=== PATIENT | female | born 1970 | race Caucasian/White ===

== ENCOUNTER 2016-08-24 08:13 | Emergency (ER) | payer OTHER ==
[~2016-08-24] VITALS: Ht 170.2 cm; Wt 59.0 kg
[~2016-08-24 08:13] MED LIST: CORTISONE SHOT; MS CONTIN60 MG PO; NEURONTIN100 MG PO; OXYCODONE/APAP1 TA4 PO
[2016-08-24 08:30] VITALS: BP 131/79
--- NOTE | 2016-08-24 08:37 | NUR ---
Patient ambulated to bed 06.
--- NOTE | 2016-08-24 08:48 | NUR ---
PATIENT PRESENTS TO ED DUE TO HEADACHE. PT STATES SHE RECEIVED CERVICAL FACET INJECTION YESTERDAY AND HAS HAD THE HEADACHE EVER SINCE,WITH VOMITTING, NO DIARRHEA SKIN IS PINK/WARM/DRY; AAOX4 WITH EVEN AND STEADY GAIT; LUNGS CLEAR BL; HR EVEN AND REGULAR; PT DENIES ANY FEVER, CP, SOB, OR COUGH AT THIS TIME; PATIENT STATES PAIN OF 1010 AT THIS TIME; VSS; PATIENT POSITIONED FOR COMFORT; HOB ELEVATED; BEDRAILS UP X2; BED DOWN. ER MADE AWARE OF PT STATUS. Addendum: 08/24/16 at 1047 by [email or web address] NOTED NEEDLE FAN ON NECK, NO BLEEDING NOTED.
--- NOTE | 2016-08-24 08:49 | NUR ---
CELY) EVALUATING PATIENT AT BEDSIDE.
--- NOTE | 2016-08-24 08:57 | NUR ---
TALKED TO PT IF SHE CAN GIVE ME URINE , PER PT SHE JUST WENT FEW MINUTES AGO.
[2016-08-24] MEDS ORDERED: KETOROLAC 30 MG/ML VIAL IM ONE (09:00)
[2016-08-24] MEDS ORDERED: METOCLOPRAMIDE 10 MG TAB PO ONE (09:00)
[2016-08-24] MEDS ORDERED: DEXAMETHASONE 4 MG/ML VIAL PO ONE (09:00)
--- NOTE | 2016-08-24 09:00 | NUR ---
DR. SELF EVALUATING PATIENT AT BEDSIDE.
[2016-08-24] MEDS ORDERED: ONDANSETRON 4 MG ODT PO ONE (09:50)
[2016-08-24] MEDS ORDERED: MORPHINE SULFATE 4 MG/ML SYR IM ONE (09:50)
--- NOTE | 2016-08-24 10:02 | NUR ---
CRANBERRY JUICE GIVEN TO THE PT PER PT REQUEST, PT AAO, AT BEDSIDE.
--- NOTE | 2016-08-24 10:24 | NUR ---
PT VERBALIZED I FEEL MUCH BETTER, PT AAO, NO VOMITTING NOTED. DR. SELF AT BEDSIDE
[2016-08-24 10:48] VITALS: BP 107/68
== END 2016-08-24 10:47 | disposition home or self-care (01) ==
LOC: MED 08:21
DX: R51 Headache (principal); G89.4 Chronic pain syndrome; M48.02 Spinal stenosis, cervical region
CPT/HCPCS: 96372; 99284; J1100; J1885; J2270; J8597; Q0163; S0119

== ENCOUNTER 2017-11-16 05:10 | Emergency (ER) | payer OTHER ==
[~2017-11-16] VITALS: Ht 172.7 cm; Wt 61.2 kg
[~2017-11-16 05:10] MED LIST changes: +ACET-7169 PO; -CORTISONE SHOT; +MORP60TE50 PO; -MS CONTIN60 MG PO; -NEURONTIN100 MG PO; -OXYCODONE/APAP1 TA4 PO
[2017-11-16 05:15] VITALS: BP 128/89
--- NOTE | 2017-11-16 05:16 | NUR ---
PATIENT PRESENTS TO ED WITH C/O SHOEMAKER X 4 DAYS; HX CHRONIC MIGRAINE WITH N/V ; SKIN IS PINK/WARM/DRY; AAOX4 WITH EVEN AND STEADY GAIT; LUNGS CLEAR BL; HR EVEN AND REGULAR; PT DENIES ANY FEVER, CP, SOB, OR COUGH AT THIS TIME; PATIENT STATES PAIN OF 9/10 AT THIS TIME; VSS; PATIENT POSITIONED FOR COMFORT; HOB ELEVATED; BEDRAILS UP X2; BED DOWN. ER MD MADE AWARE OF PT STATUS.
[2017-11-16] MEDS ORDERED: KETOROLAC 30 MG/ML VIAL IVP ONE (05:30)
[2017-11-16] MEDS ORDERED: diphenhydrAMINE 50 MG/ML VIAL IVP ONE (05:30)
[2017-11-16] MEDS ORDERED: METOCLOPRAMIDE 10 MG/2 ML INJ VIAL IVP ONE (05:30)
[2017-11-16] MEDS ORDERED: NACL 0.9% 1,000 ML IV ONE (05:30)
[2017-11-16] MEDS ORDERED: fentaNYL 0.05 MG/ML VIAL IVP ONE (06:20)
[2017-11-16 06:30] VITALS: BP 122/75
--- NOTE | 2017-11-16 06:30 | NUR ---
Patient discharged with v/s stable. Written and verbal after care instructions given and explained. Patient alert, oriented and verbalized understanding of instructions. Wheel Chair Assisted with to car. All questions addressed prior to discharge. ID band removed. Patient advised to follow up with PMD. Rx of REGLAN 5MG, FIORICET 50MG given. Patient educated on indication of medication including possible reaction and side effects. Opportunity to ask questions provided and answered.
== END 2017-11-16 06:30 | disposition home or self-care (01) ==
LOC: MED 05:10
DX: R51 Headache (principal); Z98.890 Other specified postprocedural states
CPT/HCPCS: 96361; 96374; 96375; 99284; J1200; J1885; J2765; J3010; J7030

== ENCOUNTER 2017-11-25 15:14 | Emergency (ER) | payer OTHER ==
[~2017-11-25] VITALS: Ht 170.2 cm; Wt 62.3 kg
[2017-11-25 15:17] VITALS: BP 134/98
--- NOTE | 2017-11-25 15:21 | NUR ---
PT AMBULATES WITH STEADY GAIT OT ER BED 9
--- NOTE | 2017-11-25 15:26 | NUR ---
Dr. Bill evaluating patient at bedside.
[2017-11-25] MEDS ORDERED: PROCHLORPERAZINE 10 MG/2 ML VIAL IVP ONE (15:30)
[2017-11-25] MEDS ORDERED: KETOROLAC 30 MG/ML VIAL IVP ONE (15:30)
[2017-11-25] MEDS ORDERED: diphenhydrAMINE 50 MG/ML VIAL IVP ONE (15:30)
[2017-11-25] MEDS ORDERED: NACL 0.9% 1,000 ML IV ONE (15:30)
[2017-11-25] MEDS ORDERED: MORPHINE SULFATE 4 MG/ML SYR IVP ONE (16:35)
--- NOTE | 2017-11-25 16:50 | NUR ---
PT CONTINUES TO C/O 05/01 SHOEMAKER PAIN. STATES SHE ONLY GETS RELIEF WITH MORPHINE. STATES SHE HAS AN APPT WITH HER OBGYN TO START HORMONE THERAPY, WANTS TO HAVE MORPHINE AND THEN GO HOME. DR DUVAL NOTIFIED
--- NOTE | 2017-11-25 17:01 | NUR ---
PT AMBULATING TO AND FROM BR WITH STEADY NORMAL GAIT
--- NOTE | 2017-11-25 17:07 | NUR ---
LATE ENTRY IVF NS BOLUS COMPLETE
--- NOTE | 2017-11-25 17:32 | NUR ---
PT STATES HER HEADACHE IS GONE NOW. DR DUVAL NOTIFIED, AT BEDSIDE SPEAKING WITH PT
[2017-11-25 17:44] VITALS: BP 125/85
--- NOTE | 2017-11-25 17:45 | NUR ---
Patient discharged with v/s stable. Written and verbal after care instructions given and explained. Patient verbalized understanding. Ambulatory with steady gait. All questions addressed prior to discharge. Advised to follow up with PMD.
== END 2017-11-25 17:45 | disposition home or self-care (01) ==
LOC: MED 15:14
DX: G43.909 Migraine, unspecified, not intractable, without status migrainosus (principal); R63.0 Anorexia; F17.210 Nicotine dependence, cigarettes, uncomplicated; Z79.899 Other long term (current) drug therapy
CPT/HCPCS: 96361; 96374; 96375; 99284; J0780; J1200; J1885; J2270; J7030

== ENCOUNTER 2018-12-11 21:47 | Emergency (ER) | payer OTHER ==
[~2018-12-11] VITALS: Ht 172.7 cm; Wt 59.9 kg
[2018-12-11 21:51] VITALS: BP 139/94
--- NOTE | 2018-12-11 21:58 | NUR ---
PT PRESENTS TO ED WITH C/O SEVERE THROBBING CONTINUOUS MIGRAIN SHOEMAKER X3 DAYS. ALSO C/O SINUS PRESSURE, NASAL DRAINAGE, SORE THROAT, AND COUGH X3 DAYS. COUGHING WORSENS SHOEMAKER. LIGHT SENSITIVE. NAUSEA WITHOUT VOMITING. LUNGS CLEAR BILAT THROUGHOUT. CLEAR PHLEGM. AFEBRILE WITH VSS. ER MD AWARE. POSTIONED IN BED WITH HOB ELVEATED. X1 SIDE RAILS UP. CONTINUE TO MONITOR.
--- NOTE | 2018-12-11 21:58 | NUR ---
PT TAKEN TO BED 5
--- NOTE | 2018-12-11 22:39 | NUR ---
Dr. Salgado evaluating patient at bedside.
[2018-12-11] MEDS ORDERED: NACL 0.9% 1,000 ML IV ONE (22:47)
[2018-12-11] MEDS ORDERED: KETOROLAC 30 MG/ML VIAL IVP ONE (22:50)
[2018-12-11] MEDS ORDERED: MORPHINE SULFATE 4 MG/ML SYR IVP ONE (22:50)
[2018-12-11] MEDS ORDERED: METOCLOPRAMIDE 10 MG/2 ML INJ VIAL IVP ONE (22:50)
[2018-12-11] MEDS ORDERED: diphenhydrAMINE 50 MG/ML VIAL IVP ONE (22:50)
[2018-12-12 00:30] VITALS: BP 115/63
--- NOTE | 2018-12-12 00:30 | NUR ---
Patient discharged with v/s stable. Written and verbal after care instructions given and explained. Patient alert, oriented and verbalized understanding of instructions. Ambulatory with steady gait. All questions addressed prior to discharge. ID band removed. Patient advised to follow up with PMD. Rx of TRAMADOL, SUDAFED given. Patient educated on indication of medication including possible reaction and side effects. Opportunity to ask questions provided and answered.
== END 2018-12-12 00:30 | disposition home or self-care (01) ==
LOC: MED 21:47
DX: R51 Headache (principal); J32.1 Chronic frontal sinusitis; J32.0 Chronic maxillary sinusitis; G43.909 Migraine, unspecified, not intractable, without status migrainosus; Z79.899 Other long term (current) drug therapy
CPT/HCPCS: 81002; 81025; 96361; 96374; 96375; 99283; J1200; J1885; J2270; J2765; J7030

== ENCOUNTER 2019-03-22 11:37 | Emergency (ER) | payer OTHER ==
[~2019-03-22] VITALS: Ht 170.2 cm; Wt 59.0 kg
[2019-03-22 11:53] VITALS: BP 103/76
--- NOTE | 2019-03-22 12:39 | NUR ---
Patient ambulated to bed 1. RN evaluating patient at bedside.
--- NOTE | 2019-03-22 13:05 | NUR ---
PT C/O INTERMITTENT RLQ PAIN X 3 WEEKS. STATES 6/10 RLQ, SHARP AT THIS TIME. SOMETIMES WAKES PT UP AT NIGHT. STARTED WORSENING PATIENT'S BACK PAIN. +NAUSEA, -V/D, -FEVER. LBM YESTERDAY. SYMPTOMS STARTED AFTER STARTED HRT FOR MENOPAUSE. VSS; PATIENT POSITIONED FOR COMFORT; HOB ELEVATED; BEDRAILS UP X1; BED DOWN. ER MD MADE AWARE OF PT STATUS.
[2019-03-22] MEDS ORDERED: NACL 0.9% 1,000 ML IV SCH (14:07)
[2019-03-22] MEDS ORDERED: KETOROLAC 30 MG/ML VIAL IVP ONE (14:10)
--- NOTE | 2019-03-22 14:38 | NUR ---
URINE SAMPLE OBTAINED AND SENT TO THE LAB.
[2019-03-22] MEDS ORDERED: KETOROLAC 30 MG/ML VIAL IM ONE (14:40)
--- NOTE | 2019-03-22 14:40 | NUR ---
TRIED TO ESTABLISH IV ON PT. PT STATES ONLY RIGHT FOREARM IS ACCEPTABLE AND POSSIBLE FOR SUCCESSFUL IV INSERTION WITH A SMALLEST NEEDLE. TRIED TO ESTABLISH IV ON PT WITH 22G NEEDLE, FAILED. PT DID NOT ALLOW TO INSERT IV FOR THE SECOND TIME.
--- NOTE | 2019-03-22 15:00 | NUR ---
[facility] USING BUTTERFLY NEEDLE, PT TOLERATED WELL, WALKED SAMPLES TO LAB AND HANDED TO LAB PERSONEL
[2019-03-22 15:15] LABS: BASOPHILS % (AUTO) 0.5 % (0.0-2.0); EOSINOPHILS # (AUTO) 0.1 K/uL (0-0.4); EOSINOPHILS % (AUTO) 1.7 % (0.0-4.0); HEMATOCRIT 38.1 % (36-48); LYMPHOCYTES # (AUTO) 1.7 K/uL (2.5-16.5); LYMPHOCYTES % (AUTO) 27.2 % (20.5-51.1); MEAN CORPUSCULAR HEMOGLOBIN 30 pg (27-31); MEAN CORPUSCULAR HGB CONC 34 g/dL (33-37); MEAN CORPUSCULAR VOLUME 88.5 fL (80-94); MONOCYTES # (AUTO) 0.4 K/uL (0.8-1.0); MONOCYTES % (AUTO) 7.1 % (1.7-9.3); NEUTROPHILS % (AUTO) 63.5 % (42.2-75.2); PLATELET COUNT (AUTO) 234 K/uL (140-450); RED CELL DISTRIBUTION WIDTH 12.5 % (11.6-13.7); WHITE BLOOD COUNT (AUTO) 6.3 K/uL (4.8-10.8)
[2019-03-22 15:28] LABS: CARBON DIOXIDE 23.7 mmol/L (21-32); POTASSIUM 3.7 mmol/L (3.5-5.1)
[2019-03-22 15:34] LABS: ALBUMIN 4.3 g/dL (3.4-5.0); TOTAL BILIRUBIN 0.5 mg/dL (0.0-1.0)
[2019-03-22] MEDS ORDERED: MORPHINE SULFATE 4 MG/ML SYR IM ONE (15:45)
[2019-03-22 16:21] LABS: APPEARANCE,URINE CLEAR (CLEAR); BILIRUBIN,URINE NEGATIVE (NEGATIVE); BLOOD, URINE NEGATIVE (NEGATIVE); COLOR,URINE YELLOW (YELLOW); LEUKOCYTE ESTERASE ,URINE NEGATIVE (NEGATIVE); NITRITE, URINE NEGATIVE (NEGATIVE); UGLUCOSE NEGATIVE (NEGATIVE)
[2019-03-22 17:04] VITALS: BP 118/66
--- NOTE | 2019-03-22 17:04 | NUR ---
Patient discharged with v/s stable. Written and verbal after care instructions given and explained. Patient alert, oriented and verbalized understanding of instructions. Ambulatory with steady gait. All questions addressed prior to discharge. ID band removed. Patient advised to follow up with PMD. Rx of Zofran ODT 4mg given. Patient educated on indication of medication including possible reaction and side effects. Opportunity to ask questions provided and answered.
== END 2019-03-22 17:04 | disposition home or self-care (01) ==
LOC: MED 11:37
DX: R10.11 Right upper quadrant pain (principal); M54.5 Low back pain; F41.9 Anxiety disorder, unspecified; Z79.1 Long term (current) use of non-steroidal anti-inflammatories (NSAID); Z87.19 Personal history of other diseases of the digestive system; Z79.899 Other long term (current) drug therapy; Z98.890 Other specified postprocedural states
CPT/HCPCS: 36415; 76705; 80053; 81003; 81025; 82150; 83690; 85025; 96372; 99283; J1885; J2270; Q0092

== ENCOUNTER 2019-04-27 15:33 | Emergency (ER) | payer OTHER ==
[~2019-04-27] VITALS: Ht 170.2 cm; Wt 58.1 kg
[2019-04-27 15:42] VITALS: BP 117/61
--- NOTE | 2019-04-27 15:48 | NUR ---
PT AMBULATED TO ER BED 04
--- NOTE | 2019-04-27 15:48 | NUR ---
Saad recinos in [facility] - 04/27/19 at 1548 by MALKA Pt ambulated to bed 4
--- NOTE | 2019-04-27 16:01 | NUR ---
XRAY AT BEDSIDE.
--- NOTE | 2019-04-27 16:17 | NUR ---
PT BIB SELF C/O LEFT SIDE CHEST PAIN SINCE SUNDAY. PT STATES CHEST PAIN WAS NON PROVOKED, PT IN NO ACUTE DISTRESS, VSS. RR EVEN AND UNLABORED, BL BS CLEAR. PT STATES PAIN IS MORE "DISCOMFORT". PT LAYING IN BED, CONNECTED TO BEDSIDE MONITOR, WILL CONTINUE TO MONITOR STATUS.
[2019-04-27 17:03] LABS: BASOPHILS # (AUTO) 0.1 K/uL (0.00-0.22); BASOPHILS % (AUTO) 0.6 % (0.0-2.0); EOSINOPHILS # (AUTO) 0.1 K/uL (0-0.4); EOSINOPHILS % (AUTO) 1.1 % (0.0-4.0); HEMATOCRIT 36.7 % (36-48); HEMOGLOBIN 12.1 g/dL (12.0-16.0); LYMPHOCYTES # (AUTO) 1.8 K/uL (2.5-16.5); MEAN CORPUSCULAR HEMOGLOBIN 30 pg (27-31); MEAN CORPUSCULAR HGB CONC 33 g/dL (33-37); MEAN CORPUSCULAR VOLUME 91.7 fL (80-94); MONOCYTES # (AUTO) 0.5 K/uL (0.8-1.0); MONOCYTES % (AUTO) 5.8 % (1.7-9.3); NEUTROPHILS # (AUTO) 6.4 K/uL (1.8-7.7); NEUTROPHILS % (AUTO) 72.5 % (42.2-75.2); PLATELET COUNT (AUTO) 240 K/uL (140-450); RED BLOOD CELL COUNT(AUTO) 4.01 MIL/uL (4.20-5.40); RED CELL DISTRIBUTION WIDTH 12.8 % (11.6-13.7); WHITE BLOOD COUNT (AUTO) 8.8 K/uL (4.8-10.8)
[2019-04-27 17:25] LABS: ANION GAP 15.2 (8-16); CARBON DIOXIDE 22.5 mmol/L (21-32); POTASSIUM 3.7 mmol/L (3.5-5.1)
--- NOTE | 2019-04-27 17:30 | NUR ---
PT RESTING IN BED, VSS, NO CHANGE IN STATUS.
[2019-04-27 17:31] LABS: ALBUMIN 4.2 g/dL (3.4-5.0); TOTAL BILIRUBIN 0.3 mg/dL (0.0-1.0)
[2019-04-27 17:50] LABS: CHOL/HDL RATIO 3.7 (1-4.5)
[2019-04-27 17:54] VITALS: BP 121/88
[2019-04-27 18:58] LABS: CREATINE KINASE MB 0.9 ng/mL (0-3.6)
== END 2019-04-27 17:54 | disposition home or self-care (01) ==
LOC: MED 15:33
DX: R07.89 Other chest pain (principal); R06.02 Shortness of breath; Z79.1 Long term (current) use of non-steroidal anti-inflammatories (NSAID)
CPT/HCPCS: 36415; 71045; 80053; 80061; 82550; 82553; 83880; 84484; 85025; 85379; 93005; 99284; Q0092

== ENCOUNTER 2020-03-04 18:59 | Emergency (ER) | payer OTHER ==
[~2020-03-04] VITALS: Ht 170.2 cm; Wt 57.2 kg
[2020-03-04 19:09] VITALS: BP 133/84
--- NOTE | 2020-03-04 19:15 | NUR ---
PT AMBULATED TO RESTROOM W/ STEADY GAIT.
--- NOTE | 2020-03-04 19:17 | NUR ---
PT AMBULATED TO ER BED # 7 W/ STEADY GAIT.
[2020-03-04] MEDS ORDERED: ONDANSETRON 4 MG ODT PO ONE (19:30)
--- NOTE | 2020-03-04 19:34 | NUR ---
Dr. Yin examining patient.
[2020-03-04] MEDS ORDERED: NACL 0.9% 1,000 ML IV ONE (19:35)
[2020-03-04] MEDS ORDERED: METOCLOPRAMIDE 10 MG/2 ML INJ VIAL IVP ONE (19:35)
[2020-03-04] MEDS ORDERED: diphenhydrAMINE 50 MG/ML VIAL IVP ONE (19:35)
[2020-03-04] MEDS ORDERED: KETOROLAC 30 MG/ML VIAL IVP ONE (19:35)
--- NOTE | 2020-03-04 19:35 | NUR ---
49 Y/O FEMALE C/O VOMITING AND SHOEMAKER X 3 DAYS. 10/10 PAIN AND DESCRIBES IT PRESSURE AND IS LOCATE ON THE OCCIPITAL AND FRONTAL REGION OF THE HEAD. DENIES ANY HEAD TRUAMA OR INJURY. +VOMITING AND NAUSEA. VSS. + BLURRY VISION, AND FATIGUE. DENIES ANY BLOOD IN THE VOMIT OR URINE. DENIES ANY DYSURIA. TOOK PAINS MEDS YESTERDAY. PERRLA 3MM BRISK. NKDA. PMH: MIGRAINES.
[2020-03-04] MEDS ORDERED: MORPHINE SULFATE 4 MG/ML SYR IVP ONE (20:15)
[2020-03-04] MEDS ORDERED: ONDANSETRON 4 MG/2 ML VIAL IVP ONE (20:15)
[2020-03-04 20:55] VITALS: BP 133/84
== END 2020-03-04 20:55 | disposition home or self-care (01) ==
LOC: MED 18:59
DX: G43.909 Migraine, unspecified, not intractable, without status migrainosus (principal); R11.2 Nausea with vomiting, unspecified; M54.2 Cervicalgia; Z79.899 Other long term (current) drug therapy
CPT/HCPCS: 81002; 81025; 96361; 96374; 96375; 99284; J1200; J1885; J2270; J2405; J2765; J7030

== ENCOUNTER 2020-06-10 08:24 | Emergency (ER) | payer OTHER ==
[~2020-06-10] VITALS: Ht 170.2 cm; Wt 61.7 kg
--- NOTE | 2020-06-10 08:30 | NUR ---
PT TAKEN TO BED 5 TRIAGED AT BEDSIDE.
[2020-06-10 08:35] VITALS: BP 139/86
--- NOTE | 2020-06-10 08:55 | NUR ---
c/o migraine headache accompanied by n/v x4 days. pt reports photophobia. bed in low position, side rail up x1. lights dimmed for pt comfort
[2020-06-10] MEDS ORDERED: KETOROLAC 60 MG/2 ML VIAL IM ONE (09:30)
[2020-06-10] MEDS ORDERED: ONDANSETRON 4 MG ODT PO ONE (09:30)
[2020-06-10] MEDS ORDERED: MORPHINE SULFATE 4 MG/ML SYR IM ONE (09:30)
[2020-06-10] MEDS ORDERED: SUMAtriptan succinate 6 MG/0.5 ML VIAL SUBQ ONE (10:15)
[2020-06-10 10:53] VITALS: BP 139/86
--- NOTE | 2020-06-10 10:54 | NUR ---
Patient discharged with v/s stable. Written and verbal after care instructions given and explained. Patient alert, oriented and verbalized understanding of instructions. Ambulatory with steady gait. All questions addressed prior to discharge. ID band removed. Patient advised to follow up with PMD. Rx of sumatriptan, zofran, and naprosyn given. Patient educated on indication of medication including possible reaction and side effects. Opportunity to ask questions provided and answered.
== END 2020-06-10 10:54 | disposition home or self-care (01) ==
LOC: MED 08:24
DX: G43.909 Migraine, unspecified, not intractable, without status migrainosus (principal); Z88.8 Allergy status to other drugs, medicaments and biological substances; Z79.899 Other long term (current) drug therapy
CPT/HCPCS: 96372; 99284; J1885; J2270; J3030; Q0162